=== PATIENT | male | born 1960 | race Caucasian/White ===

== ENCOUNTER 2021-10-30 17:28 | Inpatient (IN) ==
[2021-10-30] MEDS ORDERED: Naloxone 0.4 MG/ML INJ IVP PRN (20:52)
[2021-10-30] MEDS ORDERED: Ondansetron ODT 4 MG TAB.RAPDIS SL PRN (20:52)
[2021-10-30] MEDS ORDERED: Melatonin 3 MG TABLET PO PRN (20:52)
[2021-10-30] MEDS ORDERED: D5% in Water 1,000 ML IVC PRN (20:55)
[2021-10-30] MEDS ORDERED: Nitroglycerin 0.4 MG TAB.SUBL SL PRN (20:55)
[2021-10-30] MEDS ORDERED: *HR* Dextrose 50 % in Water (Syg) 50 ML SYRINGE IVP PRN (20:55)
[2021-10-30] MEDS ORDERED: Dextrose Gel 15 GM/37.5 ML TUBE PO PRN ×2 (20:55)
[2021-10-30 21:30] LABS: Hematocrit 38.5 % (37.5-50.1); Hemoglobin 12.2 g/dL (12.9-16.9); Mean Corpuscular HGB Conc 31.7 g/dL (31.6-35.5); Mean Corpuscular Hemoglobin 26.3 pg (28.0-33.3); Mean Platelet Volume 9.1 fL (9.4-12.4); Platelet Count 207 K/mcL (140-400); Red Blood Count 4.64 M/mcL (4.19-5.50); Red Cell Distribution Width 15.2 % (11.5-14.5); White Blood Count 5.3 K/mcL (4.3-11.1)
[2021-10-30 21:53] LABS: Alanine Aminotransferase 14 Units/L (7-52); Albumin 4.1 g/dL (3.5-5.7); Albumin/Globulin Ratio 1.7 (1.1-2.2); Alkaline Phosphatase 45 Units/L (34-104); Aspartate Amino Transferase 15 Units/L (13-39); BUN/Creatinine Ratio 12 (6-26); Bilirubin,Total 0.4 mg/dL (0.3-1.0); Blood Urea Nitrogen 14 mg/dL (8-23); Calcium 8.9 mg/dL (8.6-10.3); Carbon Dioxide 24 mEq/L (23-29); Chloride 104 mEq/L (98-107); Globulin 2.4 g/dL (2.4-3.5); Glucose 100 mg/dL (70-105); Magnesium 2.1 mg/dL (1.6-2.6); Osmolality,Calculated 285 (280-300); Phosphorous 3.5 mg/dL (2.7-4.5); Potassium 3.7 mEq/L (3.5-5.1); Sodium 137 mEq/L (136-145); Total Protein 6.5 g/dL (6.4-8.9); Troponin I < 0.03 ng/mL (< 0.04)
[2021-10-30] MEDS: traZODone 50 MG TABLET PO SCH (22:18)
[2021-10-30] MEDS: Morphine Sulfate 2 MG/ML SYRINGE IVP PRN (22:46)
[2021-10-30] MEDS ORDERED: Ringers Solution, Lactated 1,000 ML IVC SCH (23:30)
[2021-10-31] MEDS: Insulin LISPRO 300 UNITS/3 ML VIAL SUBQ SCH ×3 (05:36→17:45)
[2021-10-31] MEDS ORDERED: *HR* Heparin 5,000 UNIT/ML VIAL SQ SCH (06:00)
[2021-10-31] MEDS: Morphine Sulfate 2 MG/ML SYRINGE IVP PRN ×5 (06:10→22:50)
[2021-10-31] MEDS: BuPROPion XL (24 HR) 150 MG TABLET PO SCH (07:59)
[2021-10-31 08:37] LABS: Amphetamine Screen,Urine Negative ng/mL (Cutoff=1000); Barbiturate Screen,Urine Negative ng/mL (Cutoff=200); Benzodiazepines Screen,Urine Negative ng/mL (Cutoff=200); Cannabinoid Screen,Urine Positive ng/mL (Cutoff = 50); Cocaine Screen,Urine Negative ng/mL (Cutoff= 300); Opiate Screen,Urine Positive ng/mL (Cutoff=300); Phencyclidine Screen,Urine Negative ng/mL (Cutoff=25)
[2021-10-31] MEDS ORDERED: Regadenoson 0.4 MG/5 ML SYRINGE IVP ONE (11:32)
[2021-10-31] MEDS ORDERED: *HR* OxyCODONE Immed Rel 5 MG TABLET PO PRN (13:25)
[2021-10-31] MEDS ORDERED: Ranolazine 500 MG TAB.ER.12H PO SCH (14:00)
[2021-10-31] MEDS ORDERED: Metoprolol XL (24 HR) Succ 50 MG TAB.ER.24H PO SCH (14:45)
[2021-10-31] MEDS: Isosorbide MONOnitrate (24 HR) 60 MG TAB.ER.24H PO SCH (15:40)
[2021-10-31] MEDS: amLODIPine 5 MG TABLET PO SCH (15:40)
[2021-10-31] MEDS: Aspirin Enteric Coated 81 MG Tablet PO SCH (15:40)
[2021-10-31 16:29] LABS: Estimated Average Glucose 154 mg/dl
[2021-10-31] MEDS ORDERED: *HR* Heparin 5,000 UNIT/ML VIAL IVP ONE (17:10)
[2021-10-31] MEDS ORDERED: *HR* Heparin 5,000 UNIT/ML VIAL IVP PRN ×2 (17:10)
[2021-10-31 18:09] LABS: Hematocrit 38.9 % (37.5-50.1); Hemoglobin 12.1 g/dL (12.9-16.9); Mean Corpuscular HGB Conc 31.1 g/dL (31.6-35.5); Mean Corpuscular Hemoglobin 25.9 pg (28.0-33.3); Mean Corpuscular Volume 83.3 fL (83.0-100.0); Mean Platelet Volume 9.2 fL (9.4-12.4); Platelet Count 191 K/mcL (140-400); Red Blood Count 4.67 M/mcL (4.19-5.50); Red Cell Distribution Width 15.4 % (11.5-14.5); White Blood Count 4.4 K/mcL (4.3-11.1)
[2021-10-31 18:19] LABS: Heparin anti-factor XA UFH < 0.04 IU/mL (0.30-0.70)
[2021-10-31 18:20] LABS: Prothrombin Time 10.7 Seconds (9.4-12.1)
[2021-10-31] MEDS: Heparin 25,000UNIT/250ML 1/2NS 25,000 UNIT/250 ML IV.SOLN IVC SCH (18:22)
[2021-10-31] MEDS: Metoprolol XL (24 HR) Succ 50 MG TAB.ER.24H PO SCH (20:40)
[2021-10-31] MEDS: traZODone 50 MG TABLET PO SCH (20:40)
[2021-10-31] MEDS: Ranolazine 500 MG TAB.ER.12H PO SCH (20:40)
[2021-10-31] MEDS ORDERED: NON-FORMULARY MEDICATION 1 EACH EACH (Ezetimibe [Zetia] 10 MG Tablet) PO SCH (21:00)
[2021-11-01] MEDS: Insulin LISPRO 300 UNITS/3 ML VIAL SUBQ SCH ×4 (00:12→16:15)
[2021-11-01 01:49] LABS: Basophils % 0.4 %; Eosinophils # 0.2 K/mcL (0.0-0.6); Eosinophils % 4.5 %; Hematocrit 36.7 % (37.5-50.1); Hemoglobin 11.5 g/dL (12.9-16.9); Immature Granulocytes % 0.2 % (0-4); Lymphocytes # 1.6 K/mcL (0.6-4.6); Lymphocytes % 31.6 %; Mean Corpuscular HGB Conc 31.3 g/dL (31.6-35.5); Mean Corpuscular Hemoglobin 25.9 pg (28.0-33.3); Mean Corpuscular Volume 82.7 fL (83.0-100.0); Monocytes # 0.5 K/mcL (0.0-1.3); Monocytes % 10.2 %; Neutrophils # 2.6 K/mcL (1.6-8.9); Platelet Count 180 K/mcL (140-400); Red Blood Count 4.44 M/mcL (4.19-5.50); Red Cell Distribution Width 15.2 % (11.5-14.5); Segmented Neutrophils % 53.1 %; White Blood Count 4.9 K/mcL (4.3-11.1)
[2021-11-01 02:07] LABS: Calcium 8.5 mg/dL (8.6-10.3); Magnesium 1.7 mg/dL (1.6-2.6); Potassium 4.1 mEq/L (3.5-5.1)
[2021-11-01] MEDS: Morphine Sulfate 2 MG/ML SYRINGE IVP PRN ×4 (03:03→20:39)
[2021-11-01] MEDS ORDERED: *HR* LORazepam 2 MG/ML VIAL IVP ONE (03:16)
[2021-11-01] MEDS: BuPROPion XL (24 HR) 150 MG TABLET PO SCH (07:53)
[2021-11-01] MEDS: Aspirin Enteric Coated 81 MG Tablet PO SCH (07:54)
[2021-11-01] MEDS: amLODIPine 5 MG TABLET PO SCH (07:54)
[2021-11-01] MEDS: Isosorbide MONOnitrate (24 HR) 60 MG TAB.ER.24H PO SCH (07:55)
[2021-11-01] MEDS: Ranolazine 500 MG TAB.ER.12H PO SCH ×2 (07:55→20:40)
[2021-11-01] MEDS: Metoprolol XL (24 HR) Succ 50 MG TAB.ER.24H PO SCH ×2 (07:55→20:40)
[2021-11-01] MEDS ORDERED: Fluticasone Propionate Nasal 50 MCG/SPRAY BOTTLE NS PRN (07:58)
[2021-11-01] MEDS ORDERED: BuPROPion XL (24 HR) 150 MG TABLET PO SCH (09:00)
[2021-11-01] MEDS ORDERED: *HR* OxyCODONE Oral Soln 5 MG/5 ML UD.LIQ PO ONE (09:59)
[2021-11-01] MEDS ORDERED: Isosorbide MONOnitrate (24 HR) 60 MG TAB.ER.24H PO ONE (12:31)
[2021-11-01] MEDS: Heparin 25,000UNIT/250ML 1/2NS 25,000 UNIT/250 ML IV.SOLN IVC SCH (16:15)
[2021-11-01] MEDS ORDERED: tiZANidine 4 MG TABLET ONE (20:15)
[2021-11-01] MEDS ORDERED: Metoprolol XL (24 HR) Succ 25 MG TAB.ER.24H PO ONE (20:15)
[2021-11-01] MEDS ORDERED: traZODone 50 MG TABLET ONE (20:15)
[2021-11-01] MEDS ORDERED: Morphine Sulfate 2 MG/ML SYRINGE ONE (20:16)
[2021-11-01] MEDS ORDERED: Ranolazine 500 MG TAB.ER.12H PO ONE (20:16)
[2021-11-01] MEDS ORDERED: Metoprolol XL (24 HR) Succ 50 MG TAB.ER.24H PO ONE (20:24)
[2021-11-01] MEDS: traZODone 50 MG TABLET PO SCH (20:37)
[2021-11-01] MEDS ORDERED: tiZANidine 4 MG TABLET PO SCH (21:00)
[2021-11-02] MEDS: Morphine Sulfate 2 MG/ML SYRINGE IVP PRN ×2 (00:20→06:28)
[2021-11-02] MEDS: Insulin LISPRO 300 UNITS/3 ML VIAL SUBQ SCH ×4 (00:31→17:04)
[2021-11-02] MEDS ORDERED: Acetaminophen IV 500 MG/50 ML BAG IVPB ONE (00:58)
[2021-11-02 01:39] LABS: Basophils % 0.3 %; Eosinophils # 0.3 K/mcL (0.0-0.6); Eosinophils % 4.7 %; Hematocrit 37.4 % (37.5-50.1); Hemoglobin 11.6 g/dL (12.9-16.9); Immature Granulocytes % 0.3 % (0-4); Lymphocytes # 2.1 K/mcL (0.6-4.6); Lymphocytes % 31.1 %; Mean Corpuscular Hemoglobin 25.7 pg (28.0-33.3); Mean Corpuscular Volume 82.7 fL (83.0-100.0); Mean Platelet Volume 9.3 fL (9.4-12.4); Monocytes # 0.7 K/mcL (0.0-1.3); Monocytes % 10.8 %; Neutrophils # 3.6 K/mcL (1.6-8.9); Platelet Count 201 K/mcL (140-400); Red Blood Count 4.52 M/mcL (4.19-5.50); Red Cell Distribution Width 14.8 % (11.5-14.5); Segmented Neutrophils % 52.8 %; White Blood Count 6.8 K/mcL (4.3-11.1)
[2021-11-02 02:00] LABS: Calcium 8.7 mg/dL (8.6-10.3); Magnesium 1.6 mg/dL (1.6-2.6); Potassium 4.2 mEq/L (3.5-5.1)
[2021-11-02] MEDS: Ranolazine 500 MG TAB.ER.12H PO SCH (08:58)
[2021-11-02] MEDS: BuPROPion XL (24 HR) 150 MG TABLET PO SCH (08:59)
[2021-11-02] MEDS: amLODIPine 5 MG TABLET PO SCH (08:59)
[2021-11-02] MEDS: Aspirin Enteric Coated 81 MG Tablet PO SCH (08:59)
[2021-11-02] MEDS: Metoprolol XL (24 HR) Succ 50 MG TAB.ER.24H PO SCH (08:59)
[2021-11-02] MEDS ORDERED: Isosorbide MONOnitrate (24 HR) 60 MG TAB.ER.24H PO SCH (09:00)
[2021-11-02] MEDS ORDERED: *HR* Heparin 10,000 UNIT/10 ML VIAL ONE ×2 (14:36→14:55)
[2021-11-02] MEDS ORDERED: 0.9 % Sodium Chloride 2,000 ML ONE (14:36)
[2021-11-02] MEDS ORDERED: Iopamidol - 370 200 ML INFUS..BTL ONE (14:37)
[2021-11-02] MEDS ORDERED: Nitroglycerin 1,000 MCG/5 ML VIAL IV ONE (14:37)
[2021-11-02] MEDS ORDERED: Heparin 1,000 UNITS/500 mL 500 ML ONE (14:37)
[2021-11-02] MEDS ORDERED: *HR* Midazolam HCl 2 MG/2 ML VIAL ONE (14:45)
[2021-11-02] MEDS ORDERED: *HR* FentaNYL (PF) 100 MCG/2 ML VIAL ONE (14:45)
[2021-11-02] MEDS: Heparin 25,000UNIT/250ML 1/2NS 25,000 UNIT/250 ML IV.SOLN IVC SCH (15:50)
[2021-11-02 16:08] VITALS: TEMP 97.8
[2021-11-02 17:02] VITALS: PULSE 64
[2021-11-02 17:03] VITALS: BP 113/70; O2SAT 92
== END 2021-11-02 19:10 | disposition home or self-care (01) | DRG 287 ==
LOC: 3BNU → SUATTDRO 20:28
PROVIDERS: ADMIT Pharmacist; ATTEND Internal Medicine